=== PATIENT | female | born 1980 | race Caucasian/White ===

== ENCOUNTER → 2017-06-19 | Outpatient (CLI) | payer OTHER | END | disposition home or self-care (01) | LOC: KCIC MRI 07:44 | DX: M54.12 Radiculopathy, cervical region (principal); M47.892 Other spondylosis, cervical region; G89.29 Other chronic pain; R20.0 Anesthesia of skin | CPT/HCPCS: 72141 ==

== ENCOUNTER → 2017-06-19 | Outpatient (CLI) | payer OTHER | END | disposition home or self-care (01) | LOC: KCIC 07:53 | DX: M25.542 Pain in joints of left hand (principal); M25.541 Pain in joints of right hand | CPT/HCPCS: 73130 ==